=== PATIENT | female | born 1980 | race Caucasian/White ===

== ENCOUNTER → 2016-12-18 14:42 | Outpatient (CLI) | payer MEDICARE ==
[2012-10-07 07:45] VITALS: BMI 38.8
== END | disposition home or self-care (01) ==
LOC: D.MRI 14:30
DX: M25.532 Pain in left wrist (principal)

== ENCOUNTER → 2017-03-14 13:34 | Outpatient (CLI) | payer MEDICARE, MEDICAID ==
[2012-10-07 07:45] VITALS: BMI 38.8
== END | disposition home or self-care (01) ==
LOC: D.CT 13:34
DX: K56.7 Ileus, unspecified (principal)